=== PATIENT | male | born 1990 | race Caucasian/White ===

== ENCOUNTER 2018-10-25 19:56 | Emergency (ER) | payer MEDICARE ==
[2018-10-25] MEDS ORDERED: Lidocaine 1% 5ml 10 MG/ML VIAL IVP ONE (20:15)
[2018-10-25] MEDS ORDERED: cefTRIAXone SODIUM 1 GM INJ IM ONE (20:15)
--- NOTE | 2018-10-25 20:31 | ED Physician Documentation ---
Sore Throat/Dental Pain - HISTORIAN Historian: patient - HPI Stated Complaint: swollen uvula Chief Complaint: Sore Throat Additional Information: Patient presents to ED with a 2 day history of sore throat, worsening today. He states he felt like he had mucus stuck in his throat and kept tyring to cough it up. He looked in the mirror and noticed his uvula was swollen so he came to the ER. Patient denies any other complaints. NO fever, chills, nasal congestion, bodyaches or malaise. Onset: days ago (2) Associated Symptoms: sore throat, mild. denies: fever, chills, unable to swallow, runny nose, congestion, swollen glands Worsened By: nothing - ROS CONST: no problems CVS/RESP: denies: chest pain, shortness of breath GI/: denies: nausea, vomiting MS/SKIN/LYMPH: denies: muscle aches, rash NEURO/PSYCH: denies: headache - PAST HX Past History: none Other History: none Allergies/Adverse Reactions: Allergies Allergy/AdvReac Type Severity Reaction Status Date / Time Penicillins Allergy Unknown Verified 10/25/18 20:12 Home Medications: Ambulatory Orders Medication Instructions Recorded NK 10/25/18 - SOCIAL HX Smoking History: non-smoker Alcohol Use: none Drug Use: none - FAMILY HX Family History: No - VITAL SIGNS Vital Signs: Vital Signs Temp Pulse Resp BP Pulse Ox 98.4 F 89 20 137/89 97 10/25/18 20:07 10/25/18 20:07 10/25/18 20:07 10/25/18 20:07 10/25/18 20:07 - REVIEWED ASSESSMENTS Nursing Assessment Reviewed: Yes Vitals Reviewed: Yes ED Results Lab/Radiology - Orders Orders: ED Orders Category Date Time Status Rapid Strep [GRP A STREP SCREEN] Stat Lab 10/25/18 Ordered Lidocaine 1% 5ml(IM or SUTURE) [Xylocaine] Med 10/25/18 20:15 Discontinued 5 mg IVP NOW ONE cefTRIAXone SODIUM [Rocephin] Med 10/25/18 20:15 Discontinued 1 gm IM NOW ONE Sore throat Physical Exam - EXAM General Appearance: alert Head/Neck: trachea midline, no lymphadenopathy Mouth/Throat: lips nml, gums nml, membranes nml, pharyngeal erythema (uvula erythema), tonsillar swelling (uvula swelling). No: uvular shift, increased saliva, hoarse voice, muffled voice Ear/Nose: nml inspection Respiratory: no resp. distress, breath sounds nml. No: respiratory distress CVS: reg. rate & rhythm Abdomen: soft, normal bowel sounds Extremities: non-tender Skin: warm/dry, normal color Neuro/Psych: oriented x3, mood/affect nml Discharge Clincal Impression: Uvular swelling Referrals: Primary Doctor,No [Primary Care Provider] - 2 Days Additional Instructions: 1. Tylenol and/or Ibuprofen as needed for pain/swelling 2. Finish antibiotics as prescribed 3. Prednisone will help with the swelling. 4. Follow up with PCP within 1 week 5. Return to the ER with new or worsening symptoms. Call 911 if you have trouble breathing or swallowing. Condition: Stable Disposition: 01 HOME, SELF-CARE Decision to Admit: NO Date of Decison to Admit: 10/25/18 Decision Time: 20:36
[2018-10-25 20:53] VITALS: BP 138/87
== END 2018-10-25 20:50 | disposition home or self-care (01) ==
LOC: ED 19:56
DX: J39.8 Other specified diseases of upper respiratory tract (principal)
CPT/HCPCS: 87880; 96372; 99283; J0696; 87070